=== PATIENT | female | born 1985 | race Caucasian/White ===

== ENCOUNTER 2019-02-22 18:00 | Emergency (ER) | payer OTHER ==
[~2019-02-22] VITALS: Ht 162.6 cm; Wt 68.0 kg
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
[2019-02-22 19:01] VITALS: BP 135/77
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
[2019-02-22 20:38] LABS: BASOPHIL # 0.1 10^3/uL (0.0-0.1); BASOPHIL % 0.4 % (0.0-0.2); EOSINOPHIL # 0.2 10^3/uL (0.0-0.2); EOSINOPHIL % 1.1 % (0.0-5.0); HEMOGLOBIN 13.5 g/dL (12.0-15.0); LYMPHOCYTES # 2.2 10^3/uL (1.0-4.8); LYMPHOCYTES % 15.4 % (24.0-44.0); MEAN CELL HGB 32.5 pg (26-34); MEAN CELL HGB CONCENTRATION 35.4 g/dL (33-37); MEAN CORP VOLUME 91.8 fL (78-100); MEAN PLATELET VOLUME 10.3 fL (7.8-11.0); MONOCYTES # 1.7 10^3/uL (0.3-0.8); NEUTROPHIL # 10.1 10^3/uL (1.8-7.7); NEUTROPHILS % 71.1 % (41.0-85.0); PLATELET COUNT 284 10^3/uL (150-400); WHITE BLOOD CELL 14.3 10^3/uL (4.5-11.0)
[2019-02-22 20:48] LABS: CALCIUM 9.4 mg/dL (8.4-10.5); CARBON DIOXIDE 25.5 mmol/L (20.0-32)
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
[2019-02-22] MEDS ORDERED: MORPHINE SULFATE IV ONE (23:00)
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
[2019-02-23 00:24] VITALS: BP 135/77
== END 2019-02-23 00:24 | disposition home or self-care (01) ==
LOC: ER 18:00
DX: S01.01XA Laceration without foreign body of scalp, initial encounter (principal); S50.02XA Contusion of left elbow, initial encounter; S50.811A Abrasion of right forearm, initial encounter; F17.210 Nicotine dependence, cigarettes, uncomplicated; M25.552 Pain in left hip; V87.8XXA Person injured in other specified noncollision transport accidents involving motor vehicle (traffic), initial encounter; Y93.39 Activity, other involving climbing, rappelling and jumping off; Y92.488 Other paved roadways as the place of occurrence of the external cause; Y99.8 Other external cause status
CPT/HCPCS: 36415; 70450; 72125; 73070; 74177; 80053; 85025; 96374; 99285; Q9965